=== PATIENT | female | born 1985 | race Caucasian/White ===

== ENCOUNTER 2018-01-06 11:41 | Emergency (ER) | payer BC ==
[2018-01-06 11:56] VITALS: BP 152/77
[2018-01-06] MEDS ORDERED: Ondansetron 4 MG in Sodium Chloride 0.9% 50 ML IV ONE (12:47)
[2018-01-06] MEDS ORDERED: Ondansetron 4 MG/2 ML SDV IVPUSH ONE (13:05)
[2018-01-06] MEDS ORDERED: Sodium Chloride 0.9% 1,000 ML IV ONE (13:05)
[2018-01-06] MEDS ORDERED: Ondansetron 4 MG Tab.DIS PO ONE (15:54)
--- NOTE | 2018-01-06 16:14 | EDM.PDOC ---
ED HPI GENERAL MEDICAL PROBLEM - General Chief Complaint: Gastrointestinal Problem Stated Complaint: R LEG PROCEDURE YESTERDAY COMPLICATIONS Time Seen by Provider: 01/06/18 12:20 Source of Information: Reports: Patient History Limitations: Reports: No Limitations - History of Present Illness INITIAL COMMENTS - FREE TEXT/NARRATIVE: Patient is a 32-year-old female with no symmetric and past medical history presenting with a chief complaint nausea and dizziness. History of the patient underwent removal of a cyst on her right inner thigh. She received only local analgesia. Patient was not started on any new medications and she's had no dosage changes in her usual medications. Today she has describes some mild to moderate nausea along with some general fatigue malaise and occasional dizziness. Patient denies any chest pain, shortness of breath, headache visual changes. Also denies any abdominal pain vaginal discharge or bleeding. - Related Data Allergies Allergy/AdvReac Type Severity Reaction Status Date / Time No Known Allergies Allergy Verified 01/06/18 11:56 Home Meds: Home Meds ClonazePAM [KlonoPIN] 0.5 mg PO BID PRN 03/18/16 [History] Venlafaxine [Effexor XR 24 Hr] 75 mg PO DAILY 03/18/16 [History] Ondansetron [Zofran ODT] 4 mg PO Q6H PRN #10 tab.dis 01/06/18 [Rx] Past Medical History Psychiatric History: Reports: Anxiety - Past Surgical History Female Surgical History: Reports: Section Social & Family History - Tobacco Use Smoking Status *Q: Current Every Day Smoker Years of Tobacco use: 2 Packs/Tins Daily: 0.5 - Caffeine Use Caffeine Use: Reports: Coffee - Recreational Drug Use Recreational Drug Use: No ED ROS GENERAL - Review of Systems Review Of Systems: See Below Constitutional: Reports: No Symptoms, Malaise, Fatigue HEENT: Reports: No Symptoms Respiratory: Reports: No Symptoms Cardiovascular: Reports: No Symptoms Endocrine: Reports: No Symptoms GI/Abdominal: Reports: No Symptoms, Nausea : Reports: No Symptoms Musculoskeletal: Reports: No Symptoms Skin: Reports: No Symptoms Neurological: Reports: No Symptoms Psychiatric: Reports: No Symptoms Hematologic/Lymphatic: Reports: No Symptoms Immunologic: Reports: No Symptoms ED EXAM, GI/ABD - Physical Exam Exam: See Below Exam Limited By: No Limitations General Appearance: Alert, Mild Distress Head: Atraumatic, Normocephalic Neck: Normal Inspection Respiratory/Chest: No Respiratory Distress Cardiovascular: Normal Peripheral Pulses, Regular Rate, Rhythm GI/Abdominal Exam: Soft, Non-Tender Neurological: Alert, Oriented Skin Exam: Other (2 x 3 cm wound closed by sutures located on the medial aspect of the right thighassociated erythema, induration, purulent drainage appropriately tender to palpation) Course - Vital Signs Last Recorded V/S: Last Vital Signs Temp 36.4 C 01/06/18 11:54 Pulse 97 01/06/18 11:54 Resp 16 01/06/18 11:54 BP 152/77 H 01/06/18 11:54 Pulse Ox 98 01/06/18 11:54 - Orders/Labs/Meds Orders: Active Orders 24 hr Category Date Time Status UA W/MICROSCOPIC [URIN] Stat Lab 01/06/18 12:45 Ordered Labs: Laboratory Tests 01/06/18 01/06/18 01/06/18 Range/Units 12:45 13:13 13:13 WBC 9.64 (3.98-10.04) K/mm3 RBC 4.57 (3.98-5.22) M/mm3 Hgb 12.9 (11.2-15.7) gm/L Hct 39.7 (34.1-44.9) % MCV 86.9 (79.4-94.8) fl MCH 28.2 (25.6-32.2) pg MCHC 32.5 (32.2-35.5) g/dl RDW Std Deviation 45.7 (36.4-46.3) fL Plt Count 334 (182-369) K/mm3 MPV 10.2 (9.4-12.3) fl Neut % (Auto) 66.0 (34.0-71.1) % Lymph % (Auto) 23.9 (19.3-51.7) % [place] % (Auto) 7.2 (4.7-12.5) % Eos % (Auto) 2.3 (0.7-5.8) Baso % (Auto) 0.4 (0.1-1.2) % Neut # (Auto) 6.37 H (1.56-6.13) K/mm3 Lymph # (Auto) 2.30 (1.18-3.74) K/mm3 [place] # (Auto) 0.69 H (0.24-0.36) K/mm3 Eos # (Auto) 0.22 (0.04-0.36) K/mm3 Baso # (Auto) 0.04 (0.01-0.08) K/mm3 Sodium 140 (136-145) mEq/L Potassium 3.9 (3.5-5.1) mEq/L Chloride 107 (98-107) mEq/L Carbon Dioxide 26 (21-32) mEq/L Anion Gap 10.9 (5-15) BUN 8 (7-18) mg/dL Creatinine 0.7 (0.55-1.02) mg/dL Est Cr Clr Drug Dosing 91.25 mL/min Estimated GFR (MDRD) > 60 (>60) mL/min BUN/Creatinine Ratio 11.4 L (14-18) Glucose 105 (74-106) mg/dL Calcium 9.3 (8.5-10.1) mg/dL Total Bilirubin 0.4 (0.2-1.0) mg/dL AST 26 (15-37) U/L ALT 55 (14-59) U/L Alkaline Phosphatase 80 (46-116) U/L Total Protein 7.2 (6.4-8.2) g/dl Albumin 3.8 (3.4-5.0) g/dl Globulin 3.4 gm/dL Albumin/Globulin Ratio 1.1 (1-2) HCG, Quant mIU/mL Urine Color Yellow (Yellow) Urine Appearance Clear (Clear) Urine pH 7.0 (5.0-8.0) Ur Specific [place] 1.020 (1.005-1.030) Urine Protein Negative (Negative) Urine Glucose (UA) Negative (Negative) Urine Ketones Negative (Negative) Urine Occult Blood Negative (Negative) Urine Nitrite Negative (Negative) Urine Bilirubin Negative (Negative) Urine Urobilinogen 0.2 (0.2-1.0) Ur Leukocyte Esterase 1+ H (Negative) Urine RBC 0-5 (0-5) /hpf Urine WBC 5-10 H (0-5) /hpf Ur Epithelial Cells 0-5 (0-5) /hpf Urine Bacteria Few (FEW) /hpf Urine Mucus Not seen (FEW) /hpf 01/06/18 Range/Units 13:13 WBC (3.98-10.04) K/mm3 RBC (3.98-5.22) M/mm3 Hgb (11.2-15.7) gm/L Hct (34.1-44.9) % MCV (79.4-94.8) fl MCH (25.6-32.2) pg MCHC (32.2-35.5) g/dl RDW Std Deviation (36.4-46.3) fL Plt Count (182-369) K/mm3 MPV (9.4-12.3) fl Neut % (Auto) (34.0-71.1) % Lymph % (Auto) (19.3-51.7) % [place] % (Auto) (4.7-12.5) % Eos % (Auto) (0.7-5.8) Baso % (Auto) (0.1-1.2) % Neut # (Auto) (1.56-6.13) K/mm3 Lymph # (Auto) (1.18-3.74) K/mm3 [place] # (Auto) (0.24-0.36) K/mm3 Eos # (Auto) (0.04-0.36) K/mm3 Baso # (Auto) (0.01-0.08) K/mm3 Sodium (136-145) mEq/L Potassium (3.5-5.1) mEq/L Chloride (98-107) mEq/L Carbon Dioxide (21-32) mEq/L Anion Gap (5-15) BUN (7-18) mg/dL Creatinine (0.55-1.02) mg/dL Est Cr Clr Drug Dosing mL/min Estimated GFR (MDRD) (>60) mL/min BUN/Creatinine Ratio (14-18) Glucose (74-106) mg/dL Calcium (8.5-10.1) mg/dL Total Bilirubin (0.2-1.0) mg/dL AST (15-37) U/L ALT (14-59) U/L Alkaline Phosphatase (46-116) U/L Total Protein (6.4-8.2) g/dl Albumin (3.4-5.0) g/dl Globulin gm/dL Albumin/Globulin Ratio (1-2) HCG, Quant < 1.0 mIU/mL Urine Color (Yellow) Urine Appearance (Clear) Urine pH (5.0-8.0) Ur Specific [place] (1.005-1.030) Urine Protein (Negative) Urine Glucose (UA) (Negative) Urine Ketones (Negative) Urine Occult Blood (Negative) Urine Nitrite (Negative) Urine Bilirubin (Negative) Urine Urobilinogen (0.2-1.0) Ur Leukocyte Esterase (Negative) Urine RBC (0-5) /hpf Urine WBC (0-5) /hpf Ur Epithelial Cells (0-5) /hpf Urine Bacteria (FEW) /hpf Urine Mucus (FEW) /hpf Meds: Medications Discontinued Medications Generic Name Dose Route Start Last Admin Trade Name Freq PRN Reason Stop Dose Admin Ondansetron HCl 4 mg/ Sodium 52 mls @ 100 mls/hr 01/06/18 12:47 01/06/18 13: 15 Chloride IV 01/06/18 13:19 Not Given ONETIME ONE Sodium Chloride 1,000 mls @ 999 mls/hr 01/06/18 13:05 01/06/18 13:15 Normal Saline IV 01/06/18 14:05 999 mls/hr ONETIME ONE Administration Ondansetron HCl 4 mg 01/06/18 13:05 01/06/18 13:15 Zofran IVPUSH 01/06/18 13:06 4 mg ONETIME ONE Administration Ondansetron HCl 4 mg 01/06/18 15:54 01/06/18 20:38 Zofran Odt PO 01/06/18 15:55 Not Given ONETIME ONE Departure - Departure Time of Disposition: 16:14 Disposition: Home, Self-Care 01 Condition: Fair Clinical Impression: Nausea - Discharge Information *PRESCRIPTION DRUG MONITORING PROGRAM REVIEWED*: Not Applicable *COPY OF PRESCRIPTION DRUG MONITORING REPORT IN PATIENT MARY: Not Applicable Prescriptions: Ondansetron [Zofran ODT] 4 mg PO Q6H PRN #10 tab.dis PRN Reason: Nausea Instructions: Nausea, Adult Referrals: Dena Agee DETAIL MANAGER [Primary Care Provider] - Forms: ED Department Discharge Additional Instructions: You were seen and evaluated in the emergency department today for lightheadedness and nausea. Your labs are normal. Your urine shows no signs of infection. You are not . At this time I feel there is no acute emergency. It is safe to go home. Drink plenty of fluids and take the Zofran as needed for nausea. If at any time you have worsening of your symptoms or new concerning symptoms please represent to the emergency department as soon as possible for re-evaluation. - My Orders Last 24 Hours: My Active Orders 01/06/18 12:45 UA W/MICROSCOPIC [URIN] Stat - Assessment/Plan Last 24 Hours: My Active Orders 01/06/18 12:45 UA W/MICROSCOPIC [URIN] Stat
== END 2018-01-06 16:29 | disposition home or self-care (01) ==
LOC: JD.ED 11:41
DX: R11.0 Nausea (principal); R42 Dizziness and giddiness; F17.210 Nicotine dependence, cigarettes, uncomplicated; F41.9 Anxiety disorder, unspecified; Z98.890 Other specified postprocedural states; Z79.899 Other long term (current) drug therapy
CPT/HCPCS: 36415; 80053; 81001; 84702; 85025; 96361; 96374; 99284; J2405; J7040

== ENCOUNTER 2022-12-23 14:00 | Emergency (ER) | payer BC, OTHER ==
[2022-12-23 14:09] VITALS: BP 171/92; PULSE 96
[2022-12-23] MEDS ORDERED: Sodium Chloride 0.9% 10 ML Syringe FLUSH PRN (14:19)
[2022-12-23] MEDS ORDERED: Ondansetron 4 MG/2 ML SDV IVPUSH ONE (14:19)
[2022-12-23] MEDS ORDERED: HYDROmorphone 0.5 MG/0.5 ML Syringe IVPUSH ONE (14:19)
[2022-12-23 14:54] LABS: BASOPHILS ABSOLUTE AUTO 0.03 K/mm3 (0.01-0.08); BASOPHILS PERCENT AUTO 0.4 % (0.1-1.2); EOSINOPHILS ABSOLUTE AUTO 0.18 K/mm3 (0.04-0.36); EOSINOPHILS PERCENT AUTO 2.4 (0.7-5.8); HEMATOCRIT 39.5 % (34.1-44.9); IMMATURE GRAN ABSOLUTE AUTO 0.01 K/mm3 (0.00-0.10); IMMATURE GRAN PERCENT AUTO 0.1 % (<=1.0); LYMPHOCYTES ABSOLUTE AUTO 2.14 K/mm3 (1.18-3.74); LYMPHOCYTES PERCENT AUTO 29.1 % (19.3-51.7); MEAN CORPUSCULAR HEMOGLOBIN 29.6 pg (25.6-32.2); MEAN CORPUSCULAR HGB CONC 33.4 g/dl (32.2-35.5); MEAN PLATELET VOLUME 9.9 fl (9.4-12.3); MONOCYTES PERCENT AUTO 6.8 % (4.7-12.5); NEUTROPHILS PERCENT AUTO 61.2 % (34.0-71.1); PLATELET COUNT,PLT 359 K/mm3 (182-369); RED BLOOD CELL COUNT 4.46 M/mm3 (3.98-5.22); WHITE BLOOD CELL COUNT,WBC 7.36 K/mm3 (3.98-10.04)
[2022-12-23 14:55] LABS: HEMOGLOBIN 13.2 gm/dl (11.2-15.7); MEAN CORPUSCULAR VOLUME 88.6 fl (79.4-94.8)
[2022-12-23 15:14] LABS: A/G RATIO 1.2 (1-2); ALBUMIN 4.1 g/dl (3.4-5.0); ANION GAP 16.7 (5-15); BILIRUBIN TOTAL 0.5 mg/dL (0.2-1.0); BUN/CREATININE RATIO 8.8 (14-18); C-REACTIVE PROTEIN 0.3 mg/dL (<1.0); CALCIUM 8.8 mg/dL (8.5-10.1); CREATININE 0.8 mg/dL (0.55-1.02); EST CRCL DRUG DOSING (CG) 76.89 mL/min; POTASSIUM,K 3.7 mEq/L (3.5-5.1); PROTEIN TOTAL,TP 7.4 g/dl (6.4-8.2)
== END 2022-12-23 17:40 | disposition home or self-care (01) ==
LOC: JD.ED 14:00
DX: R10.2 Pelvic and perineal pain (principal); F17.210 Nicotine dependence, cigarettes, uncomplicated; Z91.09 Other allergy status, other than to drugs and biological substances
CPT/HCPCS: 36415; 76830; 80053; 81025; 85025; 86140; 96374; 96375; 99284; J1170; J2405; J3490